=== PATIENT | male | born 1960 | race Caucasian/White ===

== ENCOUNTER 2020-09-22 09:23 | Outpatient (CLI) | payer BC, SELFPAY ==
--- NOTE | 2020-09-22 09:43 | EST_ITS ---
Patient Info Name: Wesley Pichardo Age: 59 years : 1960 Gender: Male Ht: 73 in Wt: 205 lbs BSA: 2.20 m2 Exam Date: 09/22/2020 10:24 AM Exam Location: [facility] Stress Patient Status: Outpatient Admit Date: 09/22/2020 Staff Ordering Physician: Ade Jj NP Attending Provider: Ade Jj NP Exercise Technologist: Mary Beth Neville RDCS Exercise Physician: Alexis Asencio DO Exam Type: CA stress test treadmill Study Info Indications I44.0 - Atrioventricular block, first degree A treadmill exercise stress test was performed. Summary 1. 1. Negative Bharat exercise stress test for ischemic ST changes by ECG criteria. 2. 2. Excellent functional capacity, achieving 12 METs of workload. 3. 3. Baseline hypertension with hypertensive response to exercise. 4. 4. Appropriate HR response to exercise. 5. 5. Appropriate HR recovery at 1 minute post exercise. 6. 6. No imaging with stress testing. 7. 7. Patient informed of the above results. Protocol: Bharat Stress ECG Details Stage: REST Duration (min): 7 min : 22 sec Speed (mph): 0.0 Grade (%): 0 HR (bpm): 47 SBP (mmHg): 147 DBP (mmHg): 82 METS: --- Stage: REST Duration (min): 10 min : 10 sec Speed (mph): 0.0 Grade (%): 0 HR (bpm): 55 SBP (mmHg): 147 DBP (mmHg): 82 METS: --- Stage: STAGE 1 Duration (min): 1 min : 0 sec Speed (mph): 1.7 Grade (%): 10 HR (bpm): 75 SBP (mmHg): 147 DBP (mmHg): 82 METS: --- Stage: STAGE 1 Duration (min): 2 min : 0 sec Speed (mph): 1.7 Grade (%): 10 HR (bpm): 71 SBP (mmHg): 147 DBP (mmHg): 82 METS: --- Stage: STAGE 1 Duration (min): 3 min : 0 sec Speed (mph): 1.7 Grade (%): 10 HR (bpm): 74 SBP (mmHg): 177 DBP (mmHg): 80 METS: --- Stage: STAGE 2 Duration (min): 1 min : 0 sec Speed (mph): 2.5 Grade (%): 12 HR (bpm): 78 SBP (mmHg): 177 DBP (mmHg): 80 METS: --- Stage: STAGE 2 Duration (min): 2 min : 0 sec Speed (mph): 2.5 Grade (%): 12 HR (bpm): 81 SBP (mmHg): 176 DBP (mmHg): 78 METS: --- Stage: STAGE 2 Duration (min): 3 min : 0 sec Speed (mph): 2.5 Grade (%): 12 HR (bpm): 81 SBP (mmHg): 176 DBP (mmHg): 78 METS: --- Stage: STAGE 3 Duration (min): 1 min : 0 sec Speed (mph): 3.4 Grade (%): 14 HR (bpm): 90 SBP (mmHg): 180 DBP (mmHg): 74 METS: --- Stage: STAGE 3 Duration (min): 2 min : 0 sec Speed (mph): 3.4 Grade (%): 14 HR (bpm): 94 SBP (mmHg): 180 DBP (mmHg): 74 METS: --- Stage: STAGE 3 Duration (min): 3 min : 0 sec Speed (mph): 3.4 Grade (%): 14 HR (bpm): 96 SBP (mmHg): 192 DBP (mmHg): 88 METS: --- Stage: STAGE 4 Duration (min): 1 min : 0 sec Speed (mph): 4.2 Grade (%): 16 HR (bpm): 115 SBP (mmHg): 192 DBP (mmHg): 88 METS: ---
== END 2020-09-22 09:24 | disposition home or self-care (01) ==
PROVIDERS: PCP Family Medicine; Visit Provider Nurse Practitioner
DX: I44.0 Atrioventricular block, first degree (principal)
CPT/HCPCS: 93017

== ENCOUNTER 2023-07-18 00:41 | Day surgery (SDC) | payer BC, SELFPAY ==
[2023-07-17 16:59] VITALS: BMI 27.1
[2023-07-18] VITALS (13 sets, daily range): BP systolic 100–129; BP diastolic 71–91; PULSE 58–90; RESP 12–16; TEMP 36.4; O2SAT 93–100
--- NOTE | 2023-07-18 07:00 | ECG_ITS ---
Measurements Intervals [place] Rate: 74 P: NM: 0 QRS: 24 QRSD: 90 T: 29 QT: 374 QTc: 417 Interpretive Statements ATRIAL FIBRILLATION ABNORMAL ECG NO PREVIOUS ECG AVAILABLE FOR COMPARISON Electronically Signed On 07-18-2023 8:14:12 POST TRONIC MACHINE OPERATOR by Alexis Asencio D.O.
[2023-07-18 08:21] LABS: Anion Gap 11 mmol/L (8-16); Blood Urea Nitrogen 8 mg/dL (9-20); Calcium 9.4 mg/dL (8.4-10.2); Carbon Dioxide 24 mmol/L (22-30); Chloride 100 mmol/L (98-107); Estimated CRCL calculation 123 ml/min; Estimated Glomerular Filt Rate > 60; Glucose 114 mg/dL (65-110); Magnesium 2.1 mg/dL (1.6-2.3); Sodium 135 mmol/L (137-145)
--- NOTE | 2023-07-18 08:30 | ECG_ITS ---
Measurements Intervals [place] Rate: 58 P: 21 [place]: 221 QRS: 4 QRSD: 97 T: 20 QT: 414 QTc: 408 Interpretive Statements SINUS BRADYCARDIA WITH FIRST DEGREE AV BLOCK BORDERLINE ECG COMPARED TO ECG 07/18/2023 07:44:31 SINUS BRADYCARDIA NOW PRESENT FIRST DEGREE AV BLOCK NOW PRESENT Electronically Signed On 07-19-2023 14:32:28 SORTER/ASSAY TECH by Alexis Asencio D.O.
--- NOTE | 2023-07-18 09:00 | PM.IMHP ---
H&P: HPI History of Present Illness Date/Time: 07/18/23 09:00 Chief Complaint: Atrial fibrillation Narrative: 62-year-old for AFib. Brought to hospital for ALLISON cardioversion Review of Systems Review of Systems: All systems reviewed & are unremarkable except as noted in HPI and below Constitutional: Constitutional: Denies body ache(s) Cardiovascular: Cardiovascular: Denies chest pain Respiratory: Respiratory: Denies hemoptysis [facility] Past Medical History Medical History Afib Essential (primary) hypertension Hyperlipidemia, unspecified Left rotator cuff tear (~12/2021) Male erectile dysfunction, unspecified Surgical History Surgical History H/O shoulder replacement Family History Family History Mother Family history of osteoporosis Family history of arthritis Family history of emphysema Other Acute myocardial infarction Social History Social History Social History: caffeine-coffee Smoking packs per day: 0.5 Smoking cigarettes per day: 10.0 Smoking status: Former smoker Tobacco type: cigarettes Alcohol intake: current Drinks per week: 14 Alcohol use details: occasionally Substance use: never Substance use type: does not use Last use: 2009 Do You Feel Safe in your Home?: Yes Lack of Transportation: No Lack of Food: Never True Current Housing: I Have Housing Concerned About Future Housing: Decline to Answer Difficulty Paying Gas/Electric Bills: Decline to Answer Difficulty Paying for Meds: Decline to Answer Currently Unemployed: Decline to Answer Education: Decline to Answer Difficulty w/ Childcare or Family Care: Decline to Answer Living arrangements: with family Occupation/Education: occupation Gender identity (if verbalized by the patient): Male Sexual Orientation (if Verbalized by the Patient): Straight or Heterosexual Spiritual care concerns: No Agree to blood products: Yes Meds Home Medications and Allergies Home Medications Medication Instructions Recorded Confirmed Type clobetasol 0.05 % topical spray 1 spray topical DAILY PRN Skin 08/26/20 07/17/23 History Irritation sildenafil 25 mg tablet 25 mg PO DAILY PRN Activity 12/22/20 07/17/23 History amlodipine 5 mg-benazepril 40 mg 1 cap PO DAILY #90 caps 11/29/22 07/18/23 Rx capsule apixaban 5 mg tablet (Eliquis) 5 mg PO BID 07/17/23 07/18/23 History metoprolol succinate 50 mg 50 mg PO DAILY #90 tabs 07/17/23 07/18/23 Rx tablet,extended release 24 hr multivit with minerals-iron 18 1 tablet PO DAILY 07/17/23 07/17/23 History mg-folic ac 400 mcg-vit K 25 mcg tablet (Adults Multivitamin) Allergies Allergy/AdvReac Type Severity Reaction Status Date / Time Penicillins Allergy Mild Hives Verified 07/18/23 07:51 Vital Signs Vital Signs - 24 hr 07/18/23 07:56 07/18/23 08:30 Temperature 36.4 C Pulse Rate 90 84 Respiratory Rate 16 16 Blood Pressure 129/89 114/80 Pulse Oximetry 93 100 Oxygen Delivery Room Air Nasal Cannula Oxygen Flow Rate 2 Exam Narrative: Alert oriented appears to be in no acute distress. Appears stated age Const: General: comfortable HENMT: Ears: TM's normal bilaterally Face/Nose/Sinus: Normal nares present Eyes: General: appearance normal, both eyes and all related structures Sclera: sclerae normal Neck: Neck: supple and no JVD Carotids: no bruits Chest: Other: No reproducible chest wall pain to palpation Resp: Effort & Inspection: normal respiratory effort Cardio: Rate: regular rate Rhythm: abnormal rhythm irregularly irregular Heart sounds: no murmurs GI: GI Palp: Yes Soft to palpation Skin: General skin exam: normal color Neuro: Speech: normal speech Sensory Exam: normal
--- NOTE | 2023-07-18 09:02 | WPDMODSED ---
Moderate Sedation Note-Pt Data Patient Data Diagnosis: Atrial fibrillation Present Complaint: Atrial fibrillation Procedure to be performed/Plan: 1. Multiplanar transesophageal echocardiogram color-flow Doppler Moderate sedation Electrical cardioversion Allergies Allergy/AdvReac Type Severity Reaction Status Date / Time Penicillins Allergy Mild Hives Verified 07/18/23 07:51 Home Medications Medication Instructions Recorded Confirmed Type clobetasol 0.05 % topical spray 1 spray topical DAILY PRN Skin 08/26/20 07/17/23 History Irritation sildenafil 25 mg tablet 25 mg PO DAILY PRN Activity 12/22/20 07/17/23 History amlodipine 5 mg-benazepril 40 mg 1 cap PO DAILY #90 caps 11/29/22 07/18/23 Rx capsule apixaban 5 mg tablet (Eliquis) 5 mg PO BID 07/17/23 07/18/23 History metoprolol succinate 50 mg 50 mg PO DAILY #90 tabs 07/17/23 07/18/23 Rx tablet,extended release 24 hr multivit with minerals-iron 18 1 tablet PO DAILY 07/17/23 07/17/23 History mg-folic ac 400 mcg-vit K 25 mcg tablet (Adults Multivitamin) Current Medications: Active Medications Sodium Chloride (Normal Saline Iv) 1,000 mls @ 30 mls/hr IV CONT .Q24H SADA Sedation/Anesthesia: No previous sedation/anesthesia problems (including family history). [facility] Past Medical History Medical History Afib Essential (primary) hypertension Hyperlipidemia, unspecified Left rotator cuff tear (~12/2021) Male erectile dysfunction, unspecified Surgical History Surgical History H/O shoulder replacement Family History Family History Mother Family history of osteoporosis Family history of arthritis Family history of emphysema Other Acute myocardial infarction Social History Social History Social History: caffeine-coffee Smoking packs per day: 0.5 Smoking cigarettes per day: 10.0 Smoking status: Former smoker Tobacco type: cigarettes Alcohol intake: current Drinks per week: 14 Alcohol use details: occasionally Substance use: never Substance use type: does not use Last use: 2009 Do You Feel Safe in your Home?: Yes Lack of Transportation: No Lack of Food: Never True Current Housing: I Have Housing Concerned About Future Housing: Decline to Answer Difficulty Paying Gas/Electric Bills: Decline to Answer Difficulty Paying for Meds: Decline to Answer Currently Unemployed: Decline to Answer Education: Decline to Answer Difficulty w/ Childcare or Family Care: Decline to Answer Living arrangements: with family Occupation/Education: occupation Gender identity (if verbalized by the patient): Male Sexual Orientation (if Verbalized by the Patient): Straight or Heterosexual Spiritual care concerns: No Agree to blood products: Yes Mod Sed Physical Exam Physical Exam Pre Procedural Exam: Normal: Appearance, Eyes, Ears, Nose, Neck, Throat, Airway, Lungs, Heart Size, Heart Rate, Neuro Exam, Extremities and Skin and Variation: Heart Rhythm (Irregular irregular) Hours since solid foods: 12 Hours since liquid intake: 12 Mallampati Classification: class II Internal Medicine - PN: Obj Da Vital Signs Vital Signs: Vital Signs - 24 hr 07/18/23 07:56 07/18/23 08:30 Temperature 36.4 C Pulse Rate 90 84 Respiratory Rate 16 16 Blood Pressure 129/89 114/80 Pulse Oximetry 93 100 Oxygen Delivery Room Air Nasal Cannula Oxygen Flow Rate 2 Meds/Results Medications: Active Medications Generic Name Dose Route Start Last Admin Trade Name Freq PRN Reason Stop Dose Admin Sodium Chloride 1,000 mls @ 30 mls/hr 07/18/23 07:00 Normal Saline Iv IV CONT .Q24H SADA Labs 07/18/23 08:03 Labs: Laboratory Results - last 24 hr 07/18/23 08:03
--- NOTE | 2023-07-18 09:26 | P.PCNTEECA_ITS ---
ALLISON with Cardioversion Date of procedure: 07/18/23 Procedure Type: 1. Multiplanar transesophageal echocardiography was with color flow and pulse wave Doppler 2. Moderate sedation 3. Agitated saline study 4. Electrical cardioversion Diagnosis: Atrial fibrillation Indications: Atrial fibrillation Description of Procedure: After discussing the risks, benefits and alternatives to the procedure patient agreeable via verbal and written informed consent. Risks discussed included esophageal rupture perforation, , adverse reaction to anesthesia, skin irritation or burn, sore throat, shocking into more problematic heart rhythm, bleeding, pain, infection. After time-out was taken after establishing continuous telemetry monitoring, pulse oxygenation and serial blood pressure assessments the procedure was started. Procedure start time 9:06 a.m. Procedure stop time 9:17 a.m. Complications: None Blood loss: None Medications used a total 4 mg Versed and 75 mcg of fentanyl given in divided dosages for moderate sedation. Hurricaine spray to the hypopharynx x2 as well as viscous lidocaine 8 cc total for topical anesthetic. Medications were administered and patient was monitored by Mary Beth Harris RN Sedation: As above Findings: ALLISON: Normal left ventricular size and function with ejection fraction of 70%. Normal right ventricular size and function. Normal right atrial size. Mild to moderate left atrial enlargement. Mdro-jd-ulcwefzd mitral regurgitation. Possible mild torn minor cord versus redundant chordal apparatus. Normal tricuspid valve with mild tricuspid regurgitation. Normal pulmonic valve without significant pulmonic insufficiency. Trileaflet aortic valve without significant aortic insufficiency. Aortic root normal in size with minimal plaquing seen in the descending aorta and aortic arch. No pericardial effusion. Left atrial appendage is without mass or thrombus. Velocities of 50 centimeters/second. Atrial septum is intact without color flow evidence or agitated saline evidence of shunting. Cardioversion: Atrial fibrillation was confirmed and using 200 joules of synchronized biphasic energy sinus rhythm was restored. Conclusion: 1. Normal left ventricular size and function with ejection fraction 70% 2. Hxev-ot-kyfoieju left atrial enlargement 3. Hlxe-fc-ckgxview mitral regurgitation 4. . Mild tricuspid regurgitation 5. Intact atrial septum with negative agitated saline study 6. No left atrial appendage thrombus 7. Successful nondenominational of sinus rhythm using 200 joules of synchronized biphasic energy 8. Moderate sedation
== END 2023-07-18 11:20 | disposition home or self-care (01) ==
PROVIDERS: PCP Family Medicine; Visit Provider Internal Medicine Cardiovascular Disease
PROC: 5A2204Z Restoration of Cardiac Rhythm, Single (ICD-10-PCS; principal; 2023-07-18 08:30)
PROC: (CPT 93312; 2023-07-18 08:30)
DX: I48.91 Unspecified atrial fibrillation (principal); I08.1 Rheumatic disorders of both mitral and tricuspid valves; I10 Essential (primary) hypertension; E78.5 Hyperlipidemia, unspecified; N52.9 Male erectile dysfunction, unspecified; Z79.01 Long term (current) use of anticoagulants; Z98.890 Other specified postprocedural states; Z87.891 Personal history of nicotine dependence; Z86.79 Personal history of other diseases of the circulatory system; Z82.49 Family history of ischemic heart disease and other diseases of the circulatory system
CPT/HCPCS: 36415; 80048; 83735; 92960; 93312; 93320; 93325; C8925; J2250; J3010; J7030

== ENCOUNTER 2024-03-25 00:12 | Day surgery (SDC) | payer BC, SELFPAY ==
[2024-03-24 17:02] VITALS: BMI 26.6
--- NOTE | 2024-03-25 07:00 | ECG_ITS ---
Test Date: 2024-03-25 08:51:55 Measurements Intervals [place] Rate: 60 P: 22 [place]: 222 QRS: 6 QRSD: 82 T: 23 QT: 409 QTc: 409 Interpretive Statements SINUS RHYTHM WITH FIRST DEGREE AV BLOCK EARLY PRECORDIAL R/S TRANSITION BASELINE WANDER- I, III BORDERLINE ECG Compared to ECG 03/25/2024 07:29:40 Atrial fibrillation no longer present Electronically Signed On 03-25-2024 09:09:22 SMALL STOCK FACER by Alexis Asencio D.O.
[2024-03-25 07:33] VITALS: BP 132/97; PULSE 67; RESP 17; TEMP 36.6; O2SAT 96
[2024-03-25 07:46] LABS: Basophils Percent Auto 0.9 % (0.2-1.2); Eosinophils Absolute Auto 0.2 K/mm3 (0-0.3); Eosinophils Percent Auto 3.7 % (0-4.4); Hematocrit 45.7 % (42.0-52.0); Hemoglobin 16.4 g/dL (14.0-18.0); Immature Granulocyte Absolute 0.02 K/mm3 (0.00-0.031); Immature Granulocyte Percent A 0.4 % (0-0.5); Lymphocytes Absolute Auto 1.25 K/mm3 (0.9-3.2); Lymphocytes Percent Auto 27.3 % (18.3-44.2); Mean Corpuscular HGB Conc 35.9 g/dl (32-36); Mean Corpuscular Hemoglobin 34.6 pg (26-34); Mean Corpuscular Volume 96.4 fl (80-100); Mean Platelet Volume 8.8 fl (7.4-10.4); Monocytes Absolute Auto 0.7 K/mm3 (0.1-0.6); Monocytes Percent Auto 14.6 % (2.6-8.5); Neutrophils Absolute Auto 2.4 K/mm3 (1.3-6.7); Neutrophils Percent Auto 53.1 % (45.5-73.1); Platelet Count Result 231 k/mm3 (150-375); Red Blood Count 4.74 M/mm3 (4.6-6.20); Red Cell Distribution Width 11.4 % (11.5-14.5); White Blood Count 4.6 K/mm3 (4.5-10.0)
[2024-03-25 07:59] LABS: Anion Gap 11 mmol/L (4-12); Blood Urea Nitrogen 11 mg/dL (9-20); Calcium 9.4 mg/dL (8.4-10.2); Carbon Dioxide 24 mmol/L (22-30); Chloride 99 mmol/L (98-107); Estimated CRCL calculation 147 ml/min; Estimated Glomerular Filt Rate > 60; Glucose 110 mg/dL (65-110); Potassium 4.1 mmol/L (3.4-5.0); Sodium 134 mmol/L (137-145)
--- NOTE | 2024-03-25 08:38 | P.HP_ITS ---
H&P: HPI History of Present Illness Date/Time: 03/25/24 08:38 Chief Complaint: Atrial fibrillation Narrative: 63-year-old with atrial fibrillation. Here for cardioversion Review of Systems Review of Systems: All systems reviewed & are unremarkable except as noted in HPI and below Constitutional: Constitutional: Denies body ache(s) Cardiovascular: Cardiovascular: Denies chest pain Respiratory: Respiratory: Denies hemoptysis PMFSH Past Medical History Medical History Afib Broken clavicle 04/2023 Episode of gagging Essential (primary) hypertension Hyperlipidemia, unspecified Left rotator cuff tear (~12/2021) Male erectile dysfunction, unspecified Rib fracture 04/2023 Surgical History Surgical History H/O shoulder replacement Family History Family History Mother Family history of osteoporosis Family history of arthritis Family history of emphysema Other Acute myocardial infarction Social History Social History Social History: caffeine-coffee Smoking packs per day: 0 Smoking cigarettes per day: 0.0 Years smoked: 0 Smoking pack-years: 0.00 Smoking status: Never smoker Tobacco type: cigarettes Second hand tobacco smoke exposure: No Alcohol intake: current Drinks per week: 10 Alcohol use details: 1-2 drinks a day. wine Substance use: never Substance use type: does not use Last use: 2009 Do You Feel Safe in your Home?: Yes Lack of Transportation: No Lack of Food: Never True Current Housing: I Have Housing Concerned About Future Housing: Decline to Answer Difficulty Paying Gas/Electric Bills: Decline to Answer Difficulty Paying for Meds: Decline to Answer Currently Unemployed: Decline to Answer Education: Decline to Answer Difficulty w/ Childcare or Family Care: Decline to Answer Living arrangements: with family Occupation/Education: occupation Gender identity (if verbalized by the patient): Male Sexual Orientation (if Verbalized by the Patient): Straight or Heterosexual Spiritual care concerns: No Agree to blood products: Yes Meds Home Medications and Allergies Home Medications Medication Instructions Recorded Confirmed Type clobetasol 0.05 % topical spray 1 spray topical DAILY PRN Skin 08/26/20 03/24/24 History Irritation sildenafil 25 mg tablet 25 mg PO DAILY PRN Sexual Activity 12/22/20 03/24/24 History amlodipine 5 mg-benazepril 40 mg 1 cap PO DAILY #90 caps 10/08/23 03/24/24 Rx capsule apixaban 5 mg tablet (Eliquis) 5 mg PO BID 03/24/24 03/24/24 History collagen (bovine) 1 dose pk PO DAILY 03/24/24 03/24/24 History metoprolol succinate 50 mg 75 mg PO DAILY 03/24/24 03/24/24 History tablet,extended release 24 hr metronidazole 0.75 % topical cream 1 applic topical DAILY PRN Skin 03/24/24 03/24/24 History Irritation Allergies Allergy/AdvReac Type Severity Reaction Status Date / Time Penicillins Allergy Mild Hives Verified 03/25/24 07:30 Vital Signs Vital Signs - 24 hr 03/25/24 07:33 Temperature 36.6 C Pulse Rate 67 Respiratory Rate 17 Blood Pressure 132/97 H Pulse Oximetry 96 Oxygen Delivery Room Air Exam Const: General: comfortable HENMT: Face/Nose/Sinus: Normal nares present Eyes: Sclera: sclerae normal Neck: Neck: supple Resp: Auscultation: clear to auscultation bilaterally Cardio: Rhythm: abnormal rhythm irregularly irregular GI: Auscultation: normal bowel sounds Skin: General skin exam: normal color Extrem: General: normal to inspection H&P: Results Labs Labs: Short CBC 03/25/24 Range/Units 07:37 WBC 4.6 (4.5-10.0) K/mm3 Hgb 16.4 (14.0-18.0) g/dL Hct 45.7 (42.0-52.0) % Plt Count 231 (150-375) k/mm3 [facility] 03/25/24 07:37 Sodium 134 L Potassium 4.1 Chloride 99 Carbon Dioxide 24 BUN 11 Creatinine 0.50 L Glucose 110 Calcium 9.4 Assessment and Plan Assessment and plan (1) Afib: Code(s): I48.91 - Unspecified atrial fibrillation Status: Acute Assessment and Plan: On anticoagulation. Plan for elective cardioversion. He himself does not think that he is missed any doses Eliquis. States that if he did, it was only 1 dose and it was 3 weeks ago. Plan for outpatient cardioversion (2) Essential (primary) hypertension: Code(s): I10 - Essential (primary) hypertension Status: Chronic Assessment and Plan: Continue meds (3) Hyperlipidemia, unspecified: Qualifiers: Hyperlipidemia type: unspecified Qualified Code(s): E78.5 - Hyperlipidemia, unspecified Code(s): E78.5 - Hyperlipidemia, unspecified Status: Chronic
[2024-03-25 08:40] VITALS: BP 123/87; PULSE 66; RESP 19; O2SAT 98
--- NOTE | 2024-03-25 08:42 | P.SEDATION_ITS ---
Moderate Sedation Note-Pt Data Patient Data Diagnosis: Atrial fibrillation Present Complaint: Atrial fibrillation Procedure to be performed/Plan: Moderate sedation Elective electrical cardioversion Allergies Allergy/AdvReac Type Severity Reaction Status Date / Time Penicillins Allergy Mild Hives Verified 03/25/24 07:30 Home Medications Medication Instructions Recorded Confirmed Type clobetasol 0.05 % topical spray 1 spray topical DAILY PRN Skin 08/26/20 03/24/24 History Irritation sildenafil 25 mg tablet 25 mg PO DAILY PRN Sexual Activity 12/22/20 03/24/24 History amlodipine 5 mg-benazepril 40 mg 1 cap PO DAILY #90 caps 10/08/23 03/24/24 Rx capsule apixaban 5 mg tablet (Eliquis) 5 mg PO BID 03/24/24 03/24/24 History collagen (bovine) 1 dose pk PO DAILY 03/24/24 03/24/24 History metoprolol succinate 50 mg 75 mg PO DAILY 03/24/24 03/24/24 History tablet,extended release 24 hr metronidazole 0.75 % topical cream 1 applic topical DAILY PRN Skin 03/24/24 03/24/24 History Irritation Current Medications: Active Medications Sodium Chloride (Normal Saline Iv) 1,000 mls @ 30 mls/hr IV CONT .Q24H SADA Sedation/Anesthesia: No previous sedation/anesthesia problems (including family history). [facility] Past Medical History Medical History Afib Broken clavicle 04/2023 Episode of gagging Essential (primary) hypertension Hyperlipidemia, unspecified Left rotator cuff tear (~12/2021) Male erectile dysfunction, unspecified Rib fracture 04/2023 Surgical History Surgical History H/O shoulder replacement Family History Family History Mother Family history of osteoporosis Family history of arthritis Family history of emphysema Other Acute myocardial infarction Social History Social History Social History: caffeine-coffee Smoking packs per day: 0 Smoking cigarettes per day: 0.0 Years smoked: 0 Smoking pack-years: 0.00 Smoking status: Never smoker Tobacco type: cigarettes Second hand tobacco smoke exposure: No Alcohol intake: current Drinks per week: 10 Alcohol use details: 1-2 drinks a day. wine Substance use: never Substance use type: does not use Last use: 2009 Do You Feel Safe in your Home?: Yes Lack of Transportation: No Lack of Food: Never True Current Housing: I Have Housing Concerned About Future Housing: Decline to Answer Difficulty Paying Gas/Electric Bills: Decline to Answer Difficulty Paying for Meds: Decline to Answer Currently Unemployed: Decline to Answer Education: Decline to Answer Difficulty w/ Childcare or Family Care: Decline to Answer Living arrangements: with family Occupation/Education: occupation Gender identity (if verbalized by the patient): Male Sexual Orientation (if Verbalized by the Patient): Straight or Heterosexual Spiritual care concerns: No Agree to blood products: Yes Mod Sed Physical Exam Physical Exam Pre Procedural Exam: Normal: Appearance, Eyes, Ears, Nose, Neck, Throat, Airway, Lungs, Heart Size, Heart Rate, Neuro Exam, Abdomen, Extremities and Skin and Variation: Heart Rhythm (Irregular irregular) Hours since solid foods: 12 Hours since liquid intake: 12 Mallampati Classification: class II Internal Medicine - PN: Obj Da Vital Signs Vital Signs: Vital Signs - 24 hr 03/25/24 07:33 Temperature 36.6 C Pulse Rate 67 Respiratory Rate 17 Blood Pressure 132/97 H Pulse Oximetry 96 Oxygen Delivery Room Air Meds/Results Medications: Active Medications Generic Name Dose Route Start Last Admin Trade Name Freq PRN Reason Stop Dose Admin Sodium Chloride 1,000 mls @ 30 mls/hr 03/25/24 07:00 Normal Saline Iv IV CONT .Q24H SADA Labs 03/25/24 07:37 03/25/24 07:37 Labs: Laboratory Results - last 24 hr 03/25/24 07:37 WBC 4.6 RBC 4.74 Hgb 16.4 Hct 45.7 MCV 96.4 MCH 34.6 H MCHC 35.9 RDW 11.4 L Plt Count 231 MPV 8.8 Immature Gran % (Auto) 0.4 Neut % (Auto) 53.1 Lymph % (Auto) 27.3 [place] % (Auto) 14.6 H Eos % (Auto) 3.7 Baso % (Auto) 0.9 Lymph # (Auto) 1.25 [place] # (Auto) 0.7 H Eos # (Auto) 0.2 Baso # (Auto) 0.0 Abs Immat Gran (auto) 0.02 Absolute Neuts (auto) 2.4 Absolute Nucleated RBC 0.000 Nucleated RBC % 0.0 Sodium 134 L Potassium 4.1 Chloride 99 Carbon Dioxide 24 Anion Gap 11 BUN 11 Creatinine 0.50 L Estim Creat Clear Calc 147 Estimated GFR > 60 Glucose 110 Calcium 9.4 Magnesium 2.0 ASA Classification/Sedation ASA Classification/Sedation ASA Class: II Emergent: No Risks: Risks, benefits and alternatives explained and patient/family accepted plan for sedation. Patient re-evaluated immediately prior to sedation.
[2024-03-25 08:45] VITALS: BP 131/87; PULSE 64; RESP 19; O2SAT 96
--- NOTE | 2024-03-25 08:45 | ECG_ITS ---
Test Date: 2024-03-25 07:29:40 Measurements Intervals [place] Rate: 67 P: 0 [place]: 0 QRS: 8 QRSD: 90 T: 22 QT: 374 QTc: 395 Interpretive Statements ATRIAL FIBRILLATION BASELINE ARTIFACT- I, II, AVR, AVL, AVF ABNORMAL ECG No previous ECG available for comparison Electronically Signed On 03-25-2024 08:05:37 PHOTOGRAPHER'S ASSISTANT by Alexis Asencio D.O.
--- NOTE | 2024-03-25 08:54 | P.PCNCVR_ITS ---
Cardioversion Cardioversion Date of procedure: 03/25/24 Procedure: Electrocardioversion Moderate sedation Pre-op diagnosis: Atrial fibrillation Post-op diagnosis: Same Indications: Atrial fibrillation Description of procedure: After discussing risks, benefits alternatives of procedure patient agreeable via verbal and written informed consent. Risks discussed include skin irritation or burn, shocking into more problematic heart rhythm, , stroke, adverse reaction anesthesia. After establishing continuous telemetry monitoring, pulse oxygenation and serial blood pressure assessments, time-out was taken procedure was started. Procedure start time: 8:46 a.m. Procedure stop time 8:49 a.m. Complications: None Blood loss: None Sedation: A total of 3 mg of Versed and 50 mcg of fentanyl given in divided dosages Medications were administered and patient was monitored by Theresa Elizondo RN Findings: Atrial fibrillation was confirmed and 150 joules of biphasic synchronized energy was utilized to restore sinus rhythm Conclusion: 1. Successful nondenominational of sinus rhythm from atrial fibrillation 150 joules of synchronized biphasic energy 2. Moderate sedation Patient will be discharged on same meds except for reduced dose of metoprolol succinate 50 mg daily. Continue Eliquis 5 mg p.o. b.i.d. indefinitely EKG in 1 week and follow up with me thereafter
== END 2024-03-25 10:00 | disposition home or self-care (01) ==
PROVIDERS: PCP Family Medicine; Visit Provider Internal Medicine Cardiovascular Disease
PROC: 5A2204Z Restoration of Cardiac Rhythm, Single (ICD-10-PCS; principal; 2024-03-25 08:30)
DX: I48.91 Unspecified atrial fibrillation (principal); I10 Essential (primary) hypertension; E78.5 Hyperlipidemia, unspecified; Z79.01 Long term (current) use of anticoagulants
CPT/HCPCS: 36415; 80048; 83735; 85025; 92960; J2250; J3010; J7040

== ENCOUNTER 2024-09-08 15:00 | Outpatient (CLI) | payer OTHER, SELFPAY ==
--- OUTSIDE RECORDS SUMMARY | 2024-09-08 09:13 | XMS_ITS | Clinical Summary ---
Author Organization [facility] Address [address] [place] [address] Care Team Providers Care Precision Crop Manager Name Role Phone Mansoor Wright MD Primary Care Provider Joshua Miranda MD Unavailable Allergies Active Allergy Reactions Criticality Noted Date Comments Penicillins Rash Medium 02/15/2010 Medications amLODIPine-benaz epriL (LOTREL) 5-40 mg per capsuleIndicatio ns:hypertension Take 1 capsule by mouth every morning 07/14/19 22 Active clobetasoL 0.05 % external sprayIndications :Plaque Psoriasis Apply 1 spray topically as needed Active metroNIDAZOLE (METROCREAM) 0.75 % creamIndications :Acne Rosacea Apply 1 application topically every morning Active ascorbic acid (VITAMIN C) 500 mg tablet,chewableI ndications:healt h Take 1 tablet/chew tab (500 mg total) by mouth every morning Active collagen, hydrolysate, bovine, (collagen, hydr, bovine,, bulk,) 100 % powderIndication s:health 1 Scoop every morning Active sildenafiL (VIAGRA) 25 mg tablet Take 20 mg by mouth daily as needed for erectile dysfunction Active dronedarone (MULTAQ) 400 mg tabletIndication s:Persistent atrial fibrillation (HCC) Take 1 tablet (400 mg total) by mouth 2 (two) times a day 180 tablet 3 08/15/19 25 Active metoprolol XL (TOPROL-XL) 25 mg extended release tabletIndication s:Persistent atrial fibrillation (HCC) Take 1 tablet (25 mg total) by mouth daily 90 tablet 3 08/15/19 25 026 Active apixaban (ELIQUIS) 5 mg tabletIndication s:Persistent atrial fibrillation (HCC) Take 1 tablet (5 mg total) by mouth 2 (two) times a day 180 tablet 3 08/15/19 25 Active metoprolol XL (TOPROL-XL) 50 mg extended release tabletIndication s:hypertension Take 1 tablet (50 mg total) by mouth every morning 07/07/19 25 025 Discontin ued(Other ) aspirin (Enteric Coated Aspirin) 81 mg enteric coated tabletIndication s:PAF (paroxysmal atrial fibrillation) (HCC) Take 1 tablet (81 mg total) by mouth daily 07/07/19 25 025 Discontin ued(Alter virgilio therapy) apixaban (ELIQUIS) 5 mg tablet Take 1 tablet (5 mg total) by mouth 2 (two) times a day 025 Discontin ued(Reord er) Active Problems Problem Noted Date Diagnosed Date Coronary artery calcification 02/18/2024 Mixed hyperlipidemia 06/13/2023 Chronic anticoagulation 06/13/2023 Blunt trauma to chest, initial encounter 023 PAF (paroxysmal atrial fibrillation) 04/27/2023 Fracture of multiple ribs of left side 3 Overview (04/27/2023): 7th & 8th ribs Fracture of left clavicle 04/27/2023 Hyponatremia 04/27/2023 Hypertension 04/27/2023 Complete rotator cuff tear 12/15/2021 Rotator cuff tear arthropathy of left shoulder 0 11/07/2021 Overview (11/07/2021): Added automatically from request for surgery [id number] Knee pain 08/05/2017 Arthralgia of shoulder 02/15/2010 Encounters Date Type Department Care Team Description 09/01/2024 Telephone [facility] Cardiology [address] [place] [address] Derik Wise MD 08/21/2024 Telephone [facility] Cardiology [address] [place] [address] Derik Wise MD 08/14/2024 8:30 AM CDT Office Visit [facility] Medical [facility] Cardiology [address] [place] [address] Valeria Campos NP Persistent atrial fibrillation (HCC) (Primary Dx); History of cardioversion; Primary hypertension; Coronary artery calcification 08/14/2024 Telephone [facility] Cardiology [address] [place] [address] Valeria Campos NP 08/10/2024 Telephone [facility] Cardiology [address] [place] [phone] Derik Wise MD Atrial Fibrillation 07/07/2024 8:00 AM BRAIDER TENDER Office Visit [facility] Cardiology [address] [place] [phone] Valeria Campos NP PAF (paroxysmal atrial fibrillation) (HCC) (Primary Dx); History of cardioversion; Encounter for anticoagulation discussion and counseling; Primary hypertension; Coronary artery calcification from Last 3 Months Surgical History Surgery Date Site/Laterality Comments SHOULDER SURGERY 05/13/2009 - 05/12/[address] Cardona KNEE SURGERY 05/13/2004 - 05/12/2005 Medical History Medical History Date Comments Hypertension New onset atrial fibrillation (HCC) 04/27/2023 Family History Medical History Relation Name Comments Gout Father Family history of gout - (Added by TW Conv) Arthritis Mother Family history of arthritis - (Added by TW Conv) Scoliosis Mother Family history of scoliosis - (Added by TW Conv) Seizures Son Family history of seizures - (Added by TW Conv) Anesthesia problems Neg Hx Relation Name Status Comments Father Mother Son Social History Tobacco Use Types Packs/Day Years Used Date Smoking Tobacco: Never Smokeless Tobacco: Never Tobacco Cessation:Counseling Given: Not Answered [facility] Utilities Answer Date Recorded In the past 12 months has e electric, gas, oil, or water company threatened to shut off services in your home? No 04/29/2023 Social Connection and Isolat ion Panel [NHANES] Answer Date Recorded In a typical week, how many times do you talk on the phone with family, friends, or neighbors? More than three times a week 04/29/2023 How often do you get togethe r with friends or relatives? More than three times a week 04/29/2023 How often do you attend chur ch or baptism services? More than 4 times per year 04/29/2023 Do you belong to any clubs o r organizations such as uatsdin groups, unions, fraternal or athletic groups, or school groups? Yes 04/29/2023 How often do you attend meet ings of the clubs or organizations you belong to? More than 4 times per year 04/29/2023 Are you , , di vorced, , never , or living with a partner? 04/29/2023 AUDIT-C Answer Date Recorded Q1: How often do you have a drink containing alcohol? 4 or more times a week 12/15/2021 Q2: How many drinks containi ng alcohol do you have on a typical day when you are drinking? 1 or 2 Q3: How often do you have si x or more drinks on one occasion? Never 12/15/2021 Overall Financial Resource Strain (CARDIA) Answe r Date Recorded How hard is it for you to pa y for the very basics like food, housing, medical care, and heating? Not hard at all 04/29/2023 Hunger Vital Sign Answer Date Recorded Within the past 12 months, y ou worried that your food would run out before you got the money to buy more. Never true 04/29/20 23 Within the past 12 months, t he food you bought just didn't last and you didn't have money to get more. Never true 04/29/2023 PRAPARE - Transportation Answer Date Re corded In the past 12 months, has l ack of transportation kept you from medical appointments or from getting medications? No 04/12 In the past 12 months, has l ack of transportation kept you from meetings, work, or from getting things needed for daily living? No 04/29/2023 Housing Stability Vital Sign Answer Esvin e Recorded In the last 12 months, was t here a time when you were not able to pay the mortgage or rent on time? No 04/29/2023 In the last 12 months, how many places have you lived? 1 04/29/2023 In the last 12 months, was t here a time when you did not have a steady place to sleep or slept in a jail (including now)? No 04/29/2023 Personal Safety Answer Date Recorded Have you ever been in or are you currently in a harmful physical or emotional relationship or is someone making you feel afraid or unsafe? Denies 04/27/2023 Sex and Gender Information Value Date Recorded Sex Assigned at Not on file Legal Sex Male 2:42 AM BRAIDER TENDER Gender Identity Not on file Sexual Orientation Not on file Obstetrics History Last Filed Vital Signs Vital Sign Reading Time Taken Comments Blood Pressure 114/70 08/14/2024 8:27 AM CDT Pulse 55 08/14/2024 8:27 AM CDT Temperature 36.5 C (97.7 F) 04/29/2023 11:58 AM BRAIDER TENDER Respiratory Rate 16 02/18/2024 2:46 PM CDT Oxygen Saturation 95% 08/14/2024 8:27 AM CDT Inhaled Oxygen Concentration - - Weight 98.4 kg (217 lb) 08/14/2024 8:27 AM CDT Height 188 cm (6' 2 ) 08/14/2024 8:27 AM CDT Body Mass Index 27.86 08/14/2024 8:27 AM CDT Plan of Treatment Health Maintenance Due Date Last Done Comments Colon Cancer Screening-Colonoscopy 1960 Depression Screening 1960 Hepatitis C Screening 1960 Prostate Cancer Screening-PSA 1960 Hepatitis B Screening 1978 Regular Well Visit/Exam 18-64 1978 Zoster Vaccine (1 of 2) 2010 Covid-19 Vaccine (3 - 2023-2 5 season) 2024 07/01/2020, 06/03/2020 Influenza Vaccine (Season Ended) 2025 DTaP/Tdap/Td Vaccine (2 - Td or Tdap) 06/22/2031 06/22/2021 Pneumococcal vaccine <65 Aged Out No longer eligible based on patient's age to complete this topic Medical Devices Implanted Type Area Program Review Director Device Identifier Shelf Expiration Date Model / Serial / Lot Boedo 29mm Full Wedge Augment Shoulder 15d Baseplate Glenoid [id number] - [id number] - [id number] Implanted:Qty: 1 on 12/15/2021 by Roge Lassiter MD at [facility] Left: Shoulder [employer] 07/27/2026 [id number] / [id number] / [employer] Tornier Aequalis Perform Od42 Mm Reverse Shoulder Standard Sphere Glenoid [id number] - [id number] - [id number] Implanted:Qty: 1 on 12/15/2021 by Roge Lassiter MD at [facility] Left: Shoulder [employer] 10/12/2026 [id number] / [id number] / [employer] Aequalis Perform Reversed 6.5mm 35mm Central Glenoid Screw [id number] - [id number] Implanted:Qty: 1 on 12/15/2021 by Roge Lassiter MD at [facility] Left: Shoulder [employer] [id number] / / [employer] Aequalis Perform Reversed Od5 Mm L46 Mm Peripheral Glenoid Screw Baseplate Nonsterile [id number] - [id number] Implanted:Qty: 1 on 12/15/2021 by Roge Lassiter MD at [facility] Left: Shoulder [employer] [id number] / / [employer] Aequalis Perform Reversed 5mm 30mm Peripheral Glenoid Screw [id number] - [id number] Implanted:Qty: 1 on 12/15/2021 by Roge Lassiter MD at [facility] Left: Shoulder [employer] [id number] / / [employer] Aequalis Perform Reversed 5mm 42mm Peripheral Glenoid Screw [id number] - [id number] Implanted:Qty: 1 on 12/15/2021 by Roge Lassiter MD at [facility] Left: Shoulder [employer] [id number] / / [employer] Insert Perform 10 Deg [id number] - [id number] - [id number] Implanted:Qty: 1 on 12/15/2021 by Roge Lassiter MD at [facility] Left: Shoulder [employer] [id number] 01/04/2025 [id number] / [id number] / [employer] Stem Perform Sz 3 Plus Humeral Long Dwx3pl - [id number] - [id number] Implanted:Qty: 1 on 12/15/2021 by Roge Lassiter MD at [facility] Left: Shoulder [employer] 08/31/2026 [id number] / [id number] / Procedures Procedure Name Priority Date/Time Associated Diagnosis Comments ECG 12-LEAD Routine 08/14/2024 Persistent atrial fibrillation (HCC) from Last 3 Months Results * ECG 12 lead (08/14/2024) 08/14/2024 us Valeria Campos NP ECG ORDERABLES Edited Re sult - Final from Last 3 Months Insurance [facility] [employer] [facility] CHOICE [facility] HMO/PPO Address: [address] [address] [place] [address] Advance Directives For more information, please contact: [phone] Documents on File Type Date Recorded Patient C Architect Expl anation ADVANCE DIRECTIVE 12/15/2021 9:08 PM POA ADVANCE DIRECTIVE 12/15/2021 10:31 AM Power of Animal Science Professor-Medical * Full Code (Latest Code Status on File) Date Activated Date Inactivated Comments 04/27/2023 12:43 PM 04/29/2023 7:41 PM * Full Code Date Activated Date Inactivated Comments 12/15/2021 6:24 PM 12/16/2021 1:27 PM Care Teams Precision Crop Manager Relationship Specialty Start Date End Date Mansoor Wright MD PCP - General Family Practice 09/22/21 Joshua Miranda MD [address] [place] [address] Consulting Physician Cardiology 04/29/23
--- OUTSIDE RECORDS SUMMARY | 2024-09-08 09:13 | XMS_ITS | Clinical Summary ---
Author Organization [facility] Address [address] [place] [address] Care Team Providers Care All Terrain Vehicle Racer Name Role Phone Unavailable Primary Care Provider Unavailabl e Immunizations Immunization Administration Dates Next Due MODERNA COVID-19 (12+) MRNA, LNP-S, PF, 100 MCG/ 0.5 ML DOSE 07/01/2020,06/03/2020 Social History Tobacco Use Types Packs/Day Years Used Date Smoking Tobacco: Never Assessed Sex and Gender Information Value Date Recorded Sex Assigned at Not on file Legal Sex Male 2:10 PM TUBE WINDER Gender Identity Not on file Sexual Orientation Not on file Plan of Treatment Health Maintenance Due Date Last Done Comments Colorectal Cancer Screening Colonoscopy (10 Years) 1960 Annual Physical 01/01/1964 Hepatitis C 1978 DTaP, Tdap and Td Vaccines ( 1 - Tdap) 01/01/1980 Pneumococcal Vaccine: 50+ Years (1 of 1 - PCV) 2010 Zoster Vaccines (1 of 2) 2010 COVID-19 Vaccine (3 - 2023-2 5 season) 2024 07/01/2020, 06/03/2020 RSV Immunization or 60+ Years (1 - 1-dose 75+ series) 01/01/2036 Meningococcal B Vaccine Aged Out No l onger eligible based on patient's age to complete this topic Meningococcal Vaccine Aged Out No ian jagdish eligible based on patient's age to complete this topic RSV Immunizations Under 20 Months Aged Out No longer eligible b ased on patient's age to complete this topic
--- OUTSIDE RECORDS SUMMARY | 2024-09-08 09:13 | XMS_ITS | Clinical Summary ---
Author Organization [facility] Address [address] [place] [address] Care Team Providers Care Network Relay Tester Name Role Phone Aidan Brush MD Primary Care Provider [phone] Source Comments [facility],non-owned Affiliates and Associated Physician Practices is amultiple site organization consisting of ambulatory clinics and hospital sitesin [place], [place], [place] and [place]. This disclosure is being madepursuant to the Care Everywhere program and may not contain all information available regarding this patient. Last updated 18.[facility] for; to (do) Centers Allergies Active Allergy Reactions Criticality Noted Date Comments Penicillins Rash Medium 11/11/2017 Medications * Be aware that medications may not be up to date on this document. Alwaysverify current medications with the patient. nebivolol (BYSTOLIC) 10 MG tablet Take 10 mg by mouth once daily Active clobetasol propionate (CLOBEX) 0.05 % spray by Apply externally route once daily Active metroNIDAZOLE, topical, (METROCREAM) 0.75 % cream Apply to affected area as needed Active doxycycline hyclate (DORYX MPC) 120 MG tablet Take 120 mg by mouth once daily Active Active Problems No known active problems Family History Medical History Relation Name Comments Cancer - Skin, Melanoma Neg Hx Cancer - Skin, Non Melanoma Neg Hx Social History Tobacco Use Types Packs/Day Years Used Date Smoking Tobacco: Former Smokeless Tobacco: Never Comments:Quit 2009 Alcohol Use Standard Drinks/Week Comments Yes 0 (1 standard drink = 0.6 oz pur e alcohol) varies Sex and Gender Information Value Date Recorded Sex Assigned at Not on file Legal Sex Male 6:12 PM TOMATO GRADER Gender Identity Not on file Sexual Orientation Not on file Last Filed Vital Signs Vital Sign Reading Time Taken Comments Blood Pressure - - Pulse - - Temperature - - Respiratory Rate - - Oxygen Saturation - - Inhaled Oxygen Concentration - - Weight 102.1 kg (225 lb) 11/11/2017 9:24 AM CDT Height 188 cm (6' 2 ) 11/11/2017 9:24 AM CDT Body Mass Index 28.89 11/11/2017 9:24 AM CDT Plan of Treatment Health Maintenance Due Date Last Done Comments COLOGUARD (AGES 45-75) - COL ON CA SCREENING 1960 COLON MONITORING 1960 COLONOSCOPY - COLON CA SCREENING 1960 CT COLONOGRAPHY - COLON CA SCREENING 1960 Colorectal Cancer Screening 1960 FIT - COLON CA SCREENING 1960 FLEX SIG - COLON CA SCREENING 1960 LIPID TESTING 1960 HIV SCREENING 01/01/1976 HEPATITIS C SCREENING 12/27/1978 DTAP/TDAP/TD VACCINES (1 - Tdap) 01/01/1980 PNEUMOCOCCAL VACCINE 50+ (1 of 1 - PCV) 2010 ZOSTER VACCINE (1 of 2) 2010 SCREENING FOR DIABETES 11/11/2017 COVID-19 VACCINE ( - 2023-2 5 season) 2024 DEPRESSION SCREENING 05/13/2024 INFLUENZA VACCINE (Season Ended) 2025 Respiratory Syncytial Virus (RSV) Vaccine Pt: or over 60 yrs (1 - 1-dose 75+ series) 01/01/2036 HEPATITIS B VACCINE Aged Out No longe r eligible based on patient's age to complete this topic HIB VACCINE Aged Out No longer eligi ble based on patient's age to complete this topic HPV VACCINE Aged Out No longer eligi ble based on patient's age to complete this topic MENINGOCOCCAL (Group B) VACC INE SHARED DECISION-MAKING Aged Out No longer eligibl e based on patient's age to complete this topic MENINGOCOCCAL GROUPS A/C/Y/W VACCINE Aged Out No longer eligible b ased on patient's age to complete this topic Insurance [facility] Care Teams Network Relay Tester Relationship Specialty Start Date End Date Aidan Brush MD [address] [place] [address] PCP - General 11/11/17
--- OUTSIDE RECORDS SUMMARY | 2024-09-08 09:13 | XMS_ITS | Referral Summary ---
Author Organization [facility] Address [address] [place] [address] Care Team Providers Care Rn Hospice Name Role Phone Mansoor Wright MD Primary Care Provider Joshua Miranda MD Unavailable [phone] Encounters Date Type Department Care Team Description 09/01/2024 Telephone [facility] Cardiology [address] [place] [address] [place] [phone] Derik Wise MD 08/21/2024 Telephone [facility] Cardiology [address] [place] [address] [place] [phone] Derik Wise MD 08/14/2024 Telephone [facility] Cardiology [address] [place] [address] [place] [phone] Valeria Campos NP 08/14/2024 8:30 AM CDT Office Visit [facility] Cardiology [address] [place] [address] [place] [phone] Valeria Campos NP Persistent atrial fibrillation (HCC) (Primary Dx); History of cardioversion; Primary hypertension; Coronary artery calcification 08/10/2024 Telephone [facility] Cardiology [address] [facility] [address] [address] Derik Wise MD Atrial Fibrillation 07/07/2024 8:00 AM TIMBER HAND Office Visit [facility] Cardiology [address] [place] [address] [place] [phone] Valeria Campos NP PAF (paroxysmal atrial fibrillation) (HCC) (Primary Dx); History of cardioversion; Encounter for anticoagulation discussion and counseling; Primary hypertension; Coronary artery calcification from Last 3 Months Allergies Active Allergy Reactions Criticality Noted Date [...] (11/07/2021): Added automatically from request for surgery [id number] Knee pain 08/05/2017 Arthralgia of shoulder 02/15/2010 Social History Tobacco Use Types Packs/Day Years Used Date Smoking Tobacco: Never Smokeless Tobacco: Never Tobacco Cessation:Counseling Given: Not Answered [facility] Utilities Answer Date Recorded In the past [...] often do you attend chur ch or baptist services? More than 4 times per year 04/29/2023 Do you belong to any clubs o r organizations such as mandaen groups, unions, fraternal or athletic groups, or [...] when you are drinking? 1 or 2 2 Q3: How often do you have [...] place to sleep or slept in a correction (including now)? No 04/29/2023 Personal Safety Answer Date Recorded Have you ever been in or are you currently in a harmful physical or emotional relationship or is someone making you feel afraid or unsafe? Denies 04/27/2023 Sex and Gender Information Value Date Recorded Sex Assigned at Not on file Legal Sex Male 2:42 AM TIMBER HAND Gender Identity Not on file Sexual Orientation Not on file Last Filed Vital Signs Vital Sign Reading Time Taken Comments Blood Pressure 114/70 08/14/2024 8:27 AM CDT Pulse 55 08/14/2024 8:27 AM CDT Temperature 36.5 C (97.7 F) 04/29/2023 11:58 AM TIMBER HAND Respiratory Rate 16 02/18/2024 2:46 PM CDT Oxygen Saturation 95% 08/14/2024 8:27 AM CDT Inhaled Oxygen Concentration - - Weight 98.4 kg (217 lb) 08/14/2024 8:27 AM CDT Height 188 cm (6' 2 ) 08/14/2024 8:27 AM CDT Body Mass Index 27.86 08/14/2024 8:27 AM CDT Plan of Treatment Not on file Medical Devices Implanted Type Area Hockey Instructor Device Identifier Shelf Expiration Date Model / Serial / Lot [employer] Inc 29mm Full Wedge Augment Shoulder 15d Baseplate Glenoid [id number] - [id number] - [id number] Implanted:Qty: 1 on 12/15/2021 by Roge Lassiter MD at [facility] Left: Shoulder Dive[employer] Inc 07/27/2026 [id number] / [id number] / [employer] Tornier Aequalis Perform Od42 Mm Reverse Shoulder Standard Sphere Glenoid [id number] - [id number] - [id number] Implanted:Qty: 1 on 12/15/2021 by Roge Lassiter MD at [facility] Left: Shoulder [employer] Inc 10/12/2026 [id number] / [id number] / [employer] Aequalis Perform Reversed 6.5mm 35mm Central Glenoid Screw Hlh733 - [id number] Implanted:Qty: 1 on 12/15/2021 by Roge Lassiter MD at [facility] Left: Shoulder [employer] [id number] / / [employer] Aequalis Perform Reversed Od5 Mm L46 Mm Peripheral Glenoid Screw Baseplate Nonsterile [id number] - [id number] Implanted:Qty: 1 on 12/15/2021 by Roge Lassiter MD at [facility] Left: Shoulder Cavazos [employer] Inc [id number] / / [employer] Aequalis Perform Reversed 5mm 30mm Peripheral Glenoid Screw [id number] - [id number] Implanted:Qty: 1 on 12/15/2021 by Roge Lassiter MD at [facility] Left: Shoulder [employer] [id number] / / [employer] Aequalis Perform Reversed 5mm 42mm Peripheral Glenoid Screw Grx461 - [id number] Implanted:Qty: 1 on 12/15/2021 by Roge Lassiter MD at [facility] Left: Shoulder [employer] [id number] / / [employer] Insert Perform 10 Deg [id number] [id number] - [id number] - [id number] Implanted:Qty: 1 on 12/15/2021 by Roge Lassiter MD at [facility] Left: Shoulder [employer] [id number] 01/04/2025 [id number] / [id number] / [employer] Stem Perform Sz 3 Plus Humeral Long Dwx3pl - [id number] - [id number] Implanted:Qty: 1 on 12/15/2021 by Roge Lassiter MD at [facility] Left: Shoulder [employer] 08/31/2026 [id number] / [id number] / Procedures Procedure Name Priority Date/Time Associated Diagnosis Comments ECG 12-LEAD Routine 08/14/2024 Persistent atrial fibrillation (HCC) from Last 3 Months Results * ECG 12 lead (08/14/2024) 08/14/2024 Valeria Campos BROWN SOURER ECG ORDERABLES Edited Re sult - Final from Last 3 Months Insurance [facility] ACCESS CHOICE Member Subscriber Plan / Payer (Ef fective 2021-Present) Name:Wesley Pichardo Relation to Subscriber:Self Name:Wesley Pichardo Payer ID:[id number] (NAIC) Type: ALLIANCE Address: [address] [place] [id number] [facility] CHOICE PLUS Advance Directives For more information, please contact: [phone] Documents on File Type Date Recorded Patient Geophysical Engineer Expl anation ADVANCE DIRECTIVE 12/15/2021 9:08 PM POA ADVANCE DIRECTIVE 12/15/2021 10:31 AM Power of Content Developer-Medical * Full Code (Latest Code Status on File) Date Activated Date Inactivated Comments 04/27/2023 12:43 PM 04/29/2023 7:41 PM * Full Code Date Activated Date Inactivated Comments 12/15/2021 6:24 PM 12/16/2021 1:27 PM Care Teams Rn Hospice Relationship Specialty Start Date End Date Mansoor Wright MD PCP - General Family Practice 09/22/21 Joshua Miranda MD [address] [place] [address] Consulting Physician Cardiology 04/29/23
--- OUTSIDE RECORDS SUMMARY | 2024-09-21 09:08 | XMS_ITS | Clinical Summary ---
Author Organization [facility] Address [address] [place] [address] Care Team Providers Care Clinical Lab Scientist Name Role Phone Aidan Brush MD Primary Care Provider [phone] Source Comments [facility],non-owned Affiliates and Associated Physician Practices is amultiple site organization consisting of ambulatory clinics and hospital sitesin [place], [place], [place] and [place]. This disclosure is being madepursuant to the Care Everywhere program and may not contain all information available regarding this patient. 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 Care Teams Clinical Lab Scientist Relationship Specialty Start Date End Date Aidan Brush MD [address] [place] [address] PCP - General 11/11/17
--- OUTSIDE RECORDS SUMMARY | 2024-09-21 09:08 | XMS_ITS | Clinical Summary ---
Author Organization [facility] Address [address] [place] [address] Care Team Providers Care Shipfitters Supervisor Name Role Phone Mansoor Wright MD Primary [...] (11/07/2021): Added automatically from request for surgery [id number] Knee pain 08/05/2017 Arthralgia of shoulder 02/15/2010 Encounters Date Type Department Care Team Description 09/15/2024 Orders Only [facility] Cardiology [address] [place] [address] [place] [phone] Rich Marie MD 09/01/2024 Telephone [facility] Cardiology [address] [place] [address] [place] [phone] Derik Wise MD 08/21/2024 Telephone [facility] Cardiology [address] [place] [address] [address] [place] [phone] Derik Wise MD 08/14/2024 8:30 AM CDT Office Visit [facility] Cardiology [address] [place] [address] [place] [phone] Valeria Campos NP Persistent atrial fibrillation (HCC) (Primary Dx); History of cardioversion; Primary hypertension; Coronary artery calcification 08/14/2024 Telephone [facility] Cardiology [address] [place] [phone] Valeria Campos NP 08/10/2024 Telephone [facility] Cardiology [address] [place] [phone] Derik Wise MD Atrial Fibrillation 07/07/2024 8:00 AM NEMATOLOGIST Office Visit [facility] Cardiology [address] [place] [phone] Valeria Campos NP PAF (paroxysmal atrial fibrillation) [...] Tobacco: Never Tobacco Cessation:Counseling Given: Not Answered [facility] Utilities Answer Date Recorded In the past 12 months has Pri[employer], gas, oil, or water [employer] threatened to shut off services in your [...] often do you attend chur ch or catholic services? More than 4 times per year 04/29/2023 Do you belong to any clubs o r organizations such as jehovah's witness groups, unions, fraternal or athletic groups, or [...] place to sleep or slept in a [place] [facility] [place] facility (including now)? No 04/29/2023 Personal Safety Answer [...] this topic Medical Devices Implanted Type Area Clinical Support Tech Device Identifier Shelf Expiration Date Model / Serial / Lot [employer] 29mm Full Wedge Augment Shoulder 15d Baseplate Glenoid [id number] - [id number] - [id number] Implanted:Qty: 1 on 12/15/2021 by Roge Lassiter MD at [facility] Left: Shoulder [employer] 07/27/2026 [id number] / [id number] / [employer] Tornier Aequalis Perform Od42 Mm Reverse Shoulder Standard Sphere Glenoid [id number] - [id number] - [id number] Implanted:Qty: 1 on 12/15/2021 by Roge Lassiter MD at [facility] Left: Shoulder [employer] 10/12/2026 [id number] / [id number] / [employer] Aequalis Perform Reversed 6.5mm 35mm Central Glenoid Screw [id number] - [id number] Implanted:Qty: 1 on 12/15/2021 by Roge Lassiter MD at [facility] Left: Shoulder [employer] [id number] / / [employer] Aequalis Perform Reversed Od5 Mm L46 Mm Peripheral Glenoid Screw Baseplate Nonsterile [id number] - [id number] Implanted:Qty: 1 on 12/15/2021 by Roge Lassiter MD at [facility] Left: Shoulder [employer] [id number] / / [employer] Aequalis Perform Reversed 5mm 30mm Peripheral Glenoid Screw [id number] - [id number] Implanted:Qty: 1 on 12/15/2021 by Roge Lassiter MD at [facility] Left: Shoulder [employer] [id number] / / [employer] Aequalis Perform Reversed 5mm 42mm Peripheral Glenoid Screw [id number] - [id number] Implanted:Qty: 1 on 12/15/2021 by Roge Lassiter MD at [facility] Left: Shoulder [employer] [id number] / / [employer] Insert Perform 10 Deg [id number] - [id number] - [id number] Implanted:Qty: 1 on 12/15/2021 by Roge Lassiter MD at [facility] Left: Shoulder [employer] [id number] 01/04/2025 [id number] / [id number] / [employer] Stem Perform Sz 3 Plus Humeral Long Dwx3pl - [id number] - [id number] Implanted:Qty: 1 on 12/15/2021 by Roge Lassiter MD at [facility] Left: Shoulder [employer] 08/31/2026 [id number] / [id number] / Procedures Procedure Name Priority Date/Time Associated Diagnosis Comments CARDIOLOGY DOCUMENT SCAN Routine 09/14/2024 12:45 PM CDT ECG 12-LEAD Routine 08/14/2024 Persistent atrial fibrillation (HCC) from Last 3 Months Results * Cardiology Document Scan (09/14/2024 12:45 PM CDT) Anatomical Region Laterality Modality Other Rich Marie MD CV CARDIAC SERVICES PRO CEDURES Final Result * ECG 12 lead (08/14/2024) 08/14/2024 Valeria Campos NP ECG ORDERABLES Edited Re sult - Final from Last 3 Months Insurance [facility] ACCESS CHOICE [facility] CHOICE PLUS Advance Directives For more information, please contact: [phone] Documents on File Type Date Recorded Patient Store Planner Expl anation ADVANCE DIRECTIVE 12/15/2021 9:08 PM POA ADVANCE DIRECTIVE 12/15/2021 10:31 AM Power of Swaging Machine Operator-Medical * Full Code (Latest Code Status on File) Date Activated Date Inactivated Comments 04/27/2023 12:43 PM 04/29/2023 7:41 PM * Full Code Date Activated Date Inactivated Comments 12/15/2021 6:24 PM 12/16/2021 1:27 PM Care Teams Shipfitters Supervisor Relationship Specialty Start Date End Date Mansoor Wright MD PCP - General Family Practice 09/22/21 Joshua Miranda MD [address] [place] [address] Consulting Physician Cardiology 04/29/23
--- OUTSIDE RECORDS SUMMARY | 2024-09-21 09:08 | XMS_ITS | Referral Summary ---
Author Organization [facility] Address [address] [place] [address] Care Team Providers Care Ground Nuclear Weapons Assembly Officer Name Role Phone Mansoor Wright MD Primary Care Provider Joshua Miranda MD Unavailable [phone] Encounters Date Type Department Care Team Description 09/15/2024 Orders Only [facility] Cardiology [address] [place] [address] [place] [phone] Rich Marie MD 09/01/2024 Telephone [facility] Cardiology [address] [place] [address] [place] [phone] Derik Wise MD 08/21/2024 Telephone [facility] Cardiology [address] [place] [address] [place] [phone] Derik Wise MD 08/14/2024 Telephone [facility] Cardiology [address] [place] [address] [place] [phone] Valeria Campos NP 08/14/2024 8:30 AM CDT Office Visit [facility] Cardiology [address] [place] [address] [address] [place] [phone] Valeria Campos NP Persistent atrial fibrillation (HCC) (Primary Dx); History of cardioversion; Primary hypertension; Coronary artery calcification 08/10/2024 Telephone [facility] Cardiology [address] [place] [phone] Derik Wise MD Atrial Fibrillation 07/07/2024 8:00 AM CORN GROWER Office Visit [facility] Cardiology [address] [place] [phone] Valeria Campos NP PAF (paroxysmal [...] (11/07/2021): Added automatically from request for surgery [id number] Knee pain 08/05/2017 Arthralgia of shoulder 02/15/2010 Social History Tobacco Use Types Packs/Day Years Used Date Smoking Tobacco: Never Smokeless Tobacco: Never Tobacco Cessation:Counseling Given: Not Answered [facility] Utilities Answer Date Recorded In the past 12 months has [employer] electric, gas, oil, or water company threatened [...] 04/29/2023 How often do you attend chur or buddhist services? More than 4 times per year 04/29/2023 Do you belong to any clubs o r organizations such as quaker groups, unions, fraternal or athletic groups, or [...] place to sleep or slept in a senior living (including now)? No 04/29/2023 Personal Safety Answer Date Recorded Have you ever been in or are you currently in a harmful physical or emotional relationship or is someone making you feel afraid or unsafe? Denies 04/27/2023 Sex and Gender Information Value Date Recorded Sex Assigned at Not on file Legal Sex Male 2:42 AM CORN GROWER Gender Identity Not on file Sexual Orientation Not on file Last Filed Vital Signs Vital Sign Reading Time Taken Comments Blood Pressure 114/70 08/14/2024 8:27 AM CDT Pulse 55 08/14/2024 8:27 AM CDT Temperature 36.5 C (97.7 F) 04/29/2023 11:58 AM CORN GROWER Respiratory Rate 16 02/18/2024 2:46 PM CDT Oxygen Saturation 95% 08/14/2024 8:27 AM CDT Inhaled Oxygen Concentration - - Weight 98.4 kg (217 lb) 08/14/2024 8:27 AM CDT Height 188 cm (6' 2 ) 08/14/2024 8:27 AM CDT Body Mass Index 27.86 08/14/2024 8:27 AM CDT Plan of Treatment Not on file Medical Devices Implanted Type Area Preparation Department Supervisor Device Identifier Shelf Expiration Date Model / Serial / Lot [employer] 29mm Full Wedge Augment Shoulder 15d Baseplate Glenoid [id number] - [id number] - [id number] Implanted:Qty: 1 on 12/15/2021 by Roge Lassiter MD at [facility] Left: Shoulder [employer] 07/27/2026 [id number] / [id number] / [employer] Tornier Aequalis Perform Od42 Mm Reverse Shoulder Standard Sphere Glenoid Owq781 - [id number] - [id number] Implanted:Qty: 1 on 12/15/2021 by Roge Lassiter MD at [facility] Left: Shoulder [employer] 10/12/2026 [id number] / [id number] / [employer] Aequalis Perform Reversed 6.5mm 35mm Central Glenoid Screw [id number] - [id number] Implanted:Qty: 1 on 12/15/2021 by Roge Lassiter MD at [facility] Left: Shoulder [employer] [id number] / / [employer] Aequalis Perform Reversed Od5 Mm L46 Mm Peripheral Glenoid Screw Baseplate Nonsterile [id number] - [id number] Implanted:Qty: 1 on 12/15/2021 by Roge Lassiter MD at [facility] Left: Shoulder [employer] [id number] / / [employer] Aequalis Perform Reversed 5mm 30mm Peripheral Glenoid Screw [id number] - [id number] Implanted:Qty: 1 on 12/15/2021 by Roge Lassiter MD at [facility] Left: Shoulder [employer] [id number] / / [employer] Aequalis Perform Reversed 5mm 42mm Peripheral Glenoid Screw [id number] - [id number] Implanted:Qty: 1 on 12/15/2021 by Roge Lassiter MD at [facility] Left: Shoulder [employer] [id number] / / [employer] Insert Perform 10 Deg [id number] - [id number] - [id number] Implanted:Qty: 1 on 12/15/2021 by Roge Lassiter MD at [facility] Left: Shoulder [employer] [id number] 01/04/2025 [id number] / [id number] / [employer] Stem Perform Sz 3 Plus Humeral Long Dwx3pl - [id number] - [id number] Implanted:Qty: 1 on 12/15/2021 by Roge Lassiter MD at [facility] Left: Shoulder [employer] 08/31/2026 [id number] / [id number] / Procedures Procedure Name Priority Date/Time Associated Diagnosis Comments CARDIOLOGY DOCUMENT SCAN Routine 09/14/2024 12:45 PM CDT ECG 12-LEAD Routine 08/14/2024 Persistent atrial fibrillation (HCC) from Last 3 Months Results * Cardiology Document Scan (09/14/2024 12:45 PM CDT) Anatomical Region Laterality Modality Other us Rich Marie MD CV CARDIAC SERVICES PRO CEDURES Final Result * ECG 12 lead (08/14/2024) 08/14/2024 us Valeria Campos NP ECG ORDERABLES Edited Re sult - Final from Last 3 Months Insurance [facility] ACCESS CHOICE [facility] CHOICE PLUS Advance Directives For more information, please contact: [phone] Documents on File Type Date Recorded Patient Wound Treatment Rn Expl anation ADVANCE DIRECTIVE 12/15/2021 9:08 PM POA ADVANCE DIRECTIVE 12/15/2021 10:31 AM Power of Line Installer-Medical * Full Code (Latest Code Status on File) Date Activated Date Inactivated Comments 04/27/2023 12:43 PM 04/29/2023 7:41 PM * Full Code Date Activated Date Inactivated Comments 12/15/2021 6:24 PM 12/16/2021 1:27 PM Care Teams Ground Nuclear Weapons Assembly Officer Relationship Specialty Start Date End Date Mansoor Wright MD PCP - General Family Practice 09/22/21 Joshua Miranda MD [address] [place] [address] Consulting Physician Cardiology 04/29/23
--- OUTSIDE RECORDS SUMMARY | 2024-09-21 09:08 | XMS_ITS | Clinical Summary ---
Author Organization [facility] Address [address] [place] [address] Care Team Providers Care Power Saw Operator Name Role Phone Unavailable Primary Care Provider Unavailabl e Immunizations Immunization Administration Dates Next Due MODERNA COVID-19 (12+) MRNA, LNP-S, PF, 100 MCG/ 0.5 ML DOSE 07/01/2020,06/03/2020 Social History Tobacco Use Types Packs/Day Years Used Date Smoking Tobacco: Never Assessed Sex and Gender Information Value Date Recorded Sex Assigned at Not on file Legal Sex Male 2:10 PM OUTSIDE SALES ACCOUNT REPRESENTATIVE Gender Identity Not on file Sexual Orientation [...]
== END 2024-09-21 09:12 | disposition home or self-care (01) ==
PROVIDERS: PCP Family Medicine; Visit Provider Nurse Practitioner Adult Health
DX: G47.9 Sleep disorder, unspecified (principal); I48.19 Other persistent atrial fibrillation
CPT/HCPCS: 95800

== ENCOUNTER 2024-09-14 01:05 | Day surgery (SDC) | payer OTHER, SELFPAY ==
[2024-09-11 14:15] VITALS: BMI 26.4
[2024-09-14] VITALS (7 sets, daily range): BP systolic 93–130; BP diastolic 66–78; PULSE 53–65; RESP 13–18; TEMP 36.6; O2SAT 98–99; BMI 27.3
--- OUTSIDE RECORDS SUMMARY | 2024-09-14 01:09 | XMS_ITS | Clinical Summary ---
Author Organization [facility] Address [address] [place] [address] Care Team Providers Care Flying Teacher Name Role Phone Mansoor Wright MD Primary Care Provider Joshua Miranda MD Unavailable Allergies Active Allergy Reactions Criticality Noted Date Comments Penicillins Rash Medium 02/15/2010 Medications amLODIPine-benaz epriL (LOTREL) 5-40 mg per capsuleIndicatio ns:hypertension Take 1 capsule by mouth every morning 2 Active clobetasoL 0.05 % external sprayIndications :Plaque [...] (two) times a day 180 tablet 3 5 Active metoprolol XL (TOPROL-XL) 25 mg extended release tabletIndication s:Persistent atrial fibrillation (HCC) Take 1 tablet (25 mg total) by mouth daily 90 tablet 3 5 08/15/19 26 Active apixaban (ELIQUIS) 5 mg tabletIndication s:Persistent atrial fibrillation (HCC) Take 1 tablet (5 mg total) by mouth 2 (two) times a day 180 tablet 3 5 Active Active Problems Problem Noted Date Diagnosed Date [...] (11/07/2021): Added automatically from request for surgery [id number] Knee pain 08/05/2017 Arthralgia of shoulder 02/15/2010 Encounters Date Type Department Care Team Description 09/01/2024 Telephone [facility] Cardiology [address] [place] [address] [place] [phone] Derik Wise MD 08/21/2024 Telephone [facility] Cardiology [address] [place] [address] [place] [phone] Derik Wise MD 08/14/2024 8:30 AM CDT Office Visit [facility] Cardiology [address] [place] [address] [place] [phone] Valeria Campos NP Persistent atrial fibrillation (HCC) (Primary Dx); History of cardioversion; Primary hypertension; Coronary artery calcification 08/14/2024 Telephone [facility] Cardiology [address] [place] [address] [place] [phone] Valeria Campos NP 08/10/2024 Telephone [facility] Cardiology [address] [facility] [address] [phone] Derik Wise MD Atrial Fibrillation 07/07/2024 8:00 AM NEMATOLOGIST Office Visit [facility] Cardiology [address] [place] [phone] Valeria Campos NP PAF (paroxysmal atrial [...] Tobacco: Never Tobacco Cessation:Counseling Given: Not Answered [facility] Utilities Answer Date Recorded In the past 12 months has e electric, gas, oil, or water mth sense threatened to shut off services in your [...] often do you attend chur ch or sabianism services? More than 4 times per year 04/29/2023 Do you belong to any clubs o r organizations such as druze groups, unions, fraternal or athletic groups, or [...] place to sleep or slept in a half-way (including now)? No 04/29/2023 Personal Safety Answer Date Recorded Have you ever been in or are you currently in a harmful physical or emotional relationship or is someone making you feel afraid or unsafe? Denies 04/27/2023 Sex and Gender Information Value Date Recorded Sex Assigned at Not on file Legal Sex Male 2:42 AM NEMATOLOGIST Gender Identity Not on file Sexual Orientation Not on file Obstetrics History Last Filed Vital Signs Vital Sign Reading Time Taken Comments Blood Pressure 114/70 08/14/2024 8:27 AM CDT Pulse 55 08/14/2024 8:27 AM CDT Temperature 36.5 C (97.7 F) 04/29/2023 11:58 AM NEMATOLOGIST Respiratory Rate 16 02/18/2024 2:46 PM CDT [...] this topic Medical Devices Implanted Type Area Zinc Plate Cutter Device Identifier Shelf Expiration Date Model / Serial / Lot Skritter 29mm Full Wedge Augment Shoulder 15d Baseplate Glenoid Fsb196 - [id number] - [id number] Implanted:Qty: 1 on 12/15/2021 by Roge Lassiter MD at [facility] Left: Shoulder [employer] Inc 07/27/2026 [id number] / [id number] / [employer] Inc Tornier Aequalis Perform Od42 Mm Reverse Shoulder Standard Sphere Glenoid Lbv471 - [id number] - [id number] Implanted:Qty: 1 on 12/15/2021 by Roge Lassiter MD at [facility] Left: Shoulder [employer]uristic [employer] Inc 10/12/2026 JTM059 / [id number] / [employer] Inc Aequalis Perform Reversed 6.5mm 35mm Central Glenoid Screw Ysy485 - [id number] Implanted:Qty: 1 on 12/15/2021 by Roge Lassiter MD at [facility] Left: Shoulder [employer] AWH748 / / [employer] Inc Aequalis Perform Reversed Od5 Mm L46 Mm Peripheral Glenoid Screw Baseplate Nonsterile Wnj265 - [id number] Implanted:Qty: 1 on 12/15/2021 by Roge Lassiter MD at [facility] Left: Shoulder [employer] RFC386 / / [employer] Inc Aequalis Perform Reversed 5mm 30mm Peripheral Glenoid Screw Zvk299 - [id number] Implanted:Qty: 1 on 12/15/2021 by Roge Lassiter MD at [facility] Left: Shoulder L[employer] Inc TIL226 / / [employer] Inc Aequalis Perform Reversed 5mm 42mm Peripheral Glenoid Screw Dcv896 - [id number] Implanted:Qty: 1 on 12/15/2021 by Roge Lassiter MD at [facility] Left: Shoulder [employer] Inc RHZ159 / / [employer] Inc Insert Perform 10 Deg Dcj2148 Fex5034 - [id number] - [id number] Implanted:Qty: 1 on 12/15/2021 by Roge Lassiter MD at [facility] Left: Shoulder [employer] Inc [id number] 01/04/2025 [id number] / [id number] / [employer] Inc Stem Perform Sz 3 Plus Humeral Long Dwx3pl - [id number] - [id number] Implanted:Qty: 1 on 12/15/2021 by Roge Lassiter MD at [facility] Left: Shoulder [employer] Inc 08/31/2026 DWX3PL / [id number] / Procedures Procedure Name Priority Date/Time Associated Diagnosis Comments ECG 12-LEAD Routine 08/14/2024 Persistent atrial fibrillation (HCC) from Last 3 Months Results * ECG 12 lead (08/14/2024) 08/14/2024 Valeria Campos NP ECG ORDERABLES Edited Re sult - Final from Last 3 Months Insurance [facility] Advance Directives For more information, please contact: [phone] Documents on File Type Date Recorded Patient Water Resource Engineer Expl anation ADVANCE DIRECTIVE 12/15/2021 9:08 PM POA ADVANCE DIRECTIVE 12/15/2021 10:31 AM Power of Health Insurance Assessor-Medical * Full Code (Latest Code Status on File) Date Activated Date Inactivated Comments 04/27/2023 12:43 PM 04/29/2023 7:41 PM * Full Code Date Activated Date Inactivated Comments 12/15/2021 6:24 PM 12/16/2021 1:27 PM Care Teams Flying Teacher Relationship Specialty Start Date End Date Mansoor Wright MD PCP - General Family Practice 09/22/21 Joshua Miranda MD [address] [place] [address] Consulting Physician Cardiology 04/29/23
--- OUTSIDE RECORDS SUMMARY | 2024-09-14 01:09 | XMS_ITS | Clinical Summary ---
Author Organization [facility] [employer] Address [address] [facility] [place] [address] Care Team Providers Care Bee Keeper Name Role Phone Aidan Brush MD Primary Care Provider [phone] Source Comments [facility],non-owned Affiliates and Associated Physician Practices is amultiple site organization consisting of ambulatory clinics and hospital sitesin [place], [place], [place] and [place]. This disclosure is being madepursuant to the Care Everywhere program and may not contain all information available regarding this patient. 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
--- OUTSIDE RECORDS SUMMARY | 2024-09-14 01:09 | XMS_ITS | Referral Summary ---
Author Organization [facility] Address [address] [place] [address] Care Team Providers Care Leisure Travel Agent Name Role Phone Mansoor Wright MD Primary Care Provider Joshua Miranda MD Unavailable [phone] Encounters Date Type Department Care Team Description 09/01/2024 Telephone [facility] Cardiology [address] [place] [address] [place] [phone] Derik Wise MD 08/21/2024 Telephone [facility] Cardiology [address] [place] [address] [place] [phone] Derik Wise MD 08/14/2024 Telephone [facility] Cardiology [address] [place] [address] [place] [address] [phone] Valeria Campos NP 08/14/2024 8:30 AM CDT Office Visit [facility] Cardiology [address] [place] [address] [place] [phone] Valeria Campos NP Persistent atrial fibrillation (HCC) (Primary Dx); History of cardioversion; Primary hypertension; Coronary artery calcification 08/10/2024 Telephone [facility] Cardiology [address] [facility] [address], [place] [address] Derik Wise MD Atrial Fibrillation 07/07/2024 8:00 AM BIOPSYCHOLOGIST Office Visit [facility] Cardiology [address] [place] [address] [place] [phone] Valeria Campos NP PAF (paroxysmal atrial fibrillation) [...] (11/07/2021): Added automatically from request for surgery [id number] Knee pain 08/05/2017 Arthralgia of shoulder 02/15/2010 Social History Tobacco Use Types Packs/Day Years Used Date Smoking Tobacco: Never Smokeless Tobacco: Never Tobacco Cessation:Counseling Given: Not Answered [facility] Utilities Answer Date Recorded In the past 12 months has [employer] electric, gas, oil, or water company threatened [...] often do you attend chur ch or adventism services? More than 4 times per year 04/29/2023 Do you belong to any clubs o r organizations such as gnosticism groups, unions, fraternal or athletic groups, or [...] place to sleep or slept in a fci (including now)? No 04/29/2023 Personal Safety Answer Date Recorded Have you ever been in or are you currently in a harmful physical or emotional relationship or is someone making you feel afraid or unsafe? Denies 04/27/2023 Sex and Gender Information Value Date Recorded Sex Assigned at Not on file Legal Sex Male 2:42 AM BIOPSYCHOLOGIST Gender Identity Not on file Sexual Orientation Not on file Last Filed Vital Signs Vital Sign Reading Time Taken Comments Blood Pressure 114/70 08/14/2024 8:27 AM CDT Pulse 55 08/14/2024 8:27 AM CDT Temperature 36.5 C (97.7 F) 04/29/2023 11:58 AM BIOPSYCHOLOGIST Respiratory Rate 16 02/18/2024 2:46 PM CDT Oxygen Saturation 95% 08/14/2024 8:27 AM CDT Inhaled Oxygen Concentration - - Weight 98.4 kg (217 lb) 08/14/2024 8:27 AM CDT Height 188 cm (6' 2 ) 08/14/2024 8:27 AM CDT Body Mass Index 27.86 08/14/2024 8:27 AM CDT Plan of Treatment Not on file Medical Devices Implanted Type Area Quiller Tender Device Identifier Shelf Expiration Date Model / Serial / Lot Im[employer]in. [employer] 29mm Full Wedge Augment Shoulder 15d Baseplate Glenoid [id number] - [id number] - [id number] Implanted:Qty: 1 on 12/15/2021 by Roge Lassiter MD at [facility] Left: Shoulder [employer] 07/27/2026 [id number] / [id number] / Imagiin. [employer] Inc Tornier Aequalis Perform Od42 Mm Reverse Shoulder Standard Sphere Glenoid [id number] - [id number] - [id number] Implanted:Qty: 1 on 12/15/2021 by Roge Lassiter MD at [facility] Left: Shoulder [employer] 10/12/2026 IRY673 / [id number] / Imagiin. [employer] Inc Aequalis Perform Reversed 6.5mm 35mm Central Glenoid Screw Mgx549 - [id number] Implanted:Qty: 1 on 12/15/2021 by Roge Lassiter MD at [facility] Left: Shoulder Imagi[employer]. [employer] Inc GYP480 / / Imagi[employer]. [employer] Inc Aequalis Perform Reversed Od5 Mm L46 Mm Peripheral Glenoid Screw Baseplate Nonsterile Fpc425 - [id number] Implanted:Qty: 1 on 12/15/2021 by Roeg Lassiter MD at [facility] Left: Shoulder [employer] PEV687 / / Imagi[employer]. [employer] Inc Aequalis Perform Reversed 5mm 30mm Peripheral Glenoid Screw Flf451 - [id number] Implanted:Qty: 1 on 12/15/2021 by Roge Lassiter MD at [facility] Left: Shoulder Imagi[employer]. [employer] WEB305 / / Imagi[employer]. [employer] Inc Aequalis Perform Reversed 5mm 42mm Peripheral Glenoid Screw [id number] - [id number] Implanted:Qty: 1 on 12/15/2021 by Roge Lassiter MD at [facility] Left: Shoulder [employer] DPH854 / / Im[employer] Insert Perform 10 Deg Cob9923 [id number] - [id number] - [id number] Implanted:Qty: 1 on 12/15/2021 by Roge Lassiter MD at [facility] Left: Shoulder [employer] [id number] 01/04/2025 [id number] / [id number] / [employer] Stem Perform Sz 3 Plus Humeral Long Dwx3pl - [id number] - [id number] Implanted:Qty: 1 on 12/15/2021 by Roge Lassiter MD at [facility] Left: Shoulder [employer] Inc 08/31/2026 DWX3PL / [id number] / Procedures Procedure Name Priority Date/Time Associated Diagnosis Comments ECG 12-LEAD Routine 08/14/2024 Persistent atrial fibrillation (HCC) from Last 3 Months Results * ECG 12 lead (08/14/2024) 08/14/2024 Valeria Campos NP ECG ORDERABLES Edited Re sult - Final from Last 3 Months Insurance [facility] CHOICE [facility] PL[facility] Advance Directives For more information, please contact: [phone] Documents on File Type Date Recorded Patient Transition Teacher Expl anation ADVANCE DIRECTIVE 12/15/2021 9:08 PM POA ADVANCE DIRECTIVE 12/15/2021 10:31 AM Power of Radio News Anchor-Medical * Full Code (Latest Code Status on File) Date Activated Date Inactivated Comments 04/27/2023 12:43 PM 04/29/2023 7:41 PM * Full Code Date Activated Date Inactivated Comments 12/15/2021 6:24 PM 12/16/2021 1:27 PM Care Teams Leisure Travel Agent Relationship Specialty Start Date End Date Mansoor Wright MD PCP - General Family Practice 09/22/21 Joshua Miranda MD [address] [place] [address] Consulting Physician Cardiology 04/29/23
--- OUTSIDE RECORDS SUMMARY | 2024-09-14 01:09 | XMS_ITS | Clinical Summary ---
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
--- NOTE | 2024-09-14 07:30 | ECG_ITS ---
Test Date: 2024-09-14 08:03:19 Measurements Intervals [place] Rate: 59 P: 0 [place]: 0 QRS: 19 QRSD: 88 T: 30 QT: 403 QTc: 400 Interpretive Statements ATRIAL FIBRILLATION WITH SLOW VENTRICULAR RESPONSE ABNORMAL RHYTHM ECG Compared to ECG 03/25/2024 08:51:55 ATRIAL FIBRILLATION REPLACES SINUS RHYTHM Electronically Signed On 09-14-2024 15:35:43 CDT by Luther Harrington M.D.
[2024-09-14 08:26] LABS: Basophils Absolute Auto 0.1 K/mm3 (0.0-0.1); Basophils Percent Auto 1.3 % (0.2-1.2); Eosinophils Absolute Auto 0.1 K/mm3 (0-0.3); Eosinophils Percent Auto 2.2 % (0-4.4); Hematocrit 45.5 % (42.0-52.0); Hemoglobin 15.7 g/dL (14.0-18.0); Immature Granulocyte Absolute 0.02 K/mm3 (0.00-0.031); Immature Granulocyte Percent A 0.4 % (0-0.5); Lymphocytes Absolute Auto 1.02 K/mm3 (0.9-3.2); Lymphocytes Percent Auto 18.4 % (18.3-44.2); Mean Corpuscular HGB Conc 34.5 g/dl (32-36); Mean Corpuscular Hemoglobin 34.1 pg (26-34); Mean Corpuscular Volume 98.7 fl (80-100); Mean Platelet Volume 8.7 fl (7.4-10.4); Monocytes Absolute Auto 0.7 K/mm3 (0.1-0.6); Monocytes Percent Auto 12.8 % (2.6-8.5); Neutrophils Absolute Auto 3.6 K/mm3 (1.3-6.7); Neutrophils Percent Auto 64.9 % (45.5-73.1); Platelet Count Result 302 k/mm3 (150-375); Red Blood Count 4.61 M/mm3 (4.6-6.20); Red Cell Distribution Width 11.5 % (11.5-14.5); White Blood Count 5.5 K/mm3 (4.5-10.0)
[2024-09-14 08:37] LABS: Anion Gap 7 mmol/L (4-12); Blood Urea Nitrogen 10 mg/dL (9-20); Calcium 9.3 mg/dL (8.4-10.2); Carbon Dioxide 27 mmol/L (22-30); Chloride 102 mmol/L (98-107); Estimated CRCL calculation 121 ml/min; Estimated Glomerular Filt Rate > 60; Glucose 107 mg/dL (65-110); Potassium 4.1 mmol/L (3.4-5.0); Sodium 136 mmol/L (137-145)
[2024-09-14] MEDS: PROPOFOL IV EMULSION 200 MG/20 ML VIAL 40 MG IV PUSH ×2 (08:52→08:54)
--- NOTE | 2024-09-14 09:00 | ECG_ITS ---
Test Date: 2024-09-14 08:58:23 Measurements Intervals [place] Rate: 55 P: 18 FL: 225 QRS: 13 QRSD: 85 T: 29 QT: 430 QTc: 413 Interpretive Statements SINUS BRADYCARDIA WITH FIRST DEGREE AV BLOCK BORDERLINE ECG Compared to ECG 09/14/2024 08:03:19 SINUS RHYTHM REPLACES ATRIAL FIBRILLATION Electronically Signed On 09-14-2024 15:38:59 CDT by Luther Harrington M.D.
--- NOTE | 2024-09-14 09:01 | WPDHPUPDATE1 ---
History and Physical Update Update Date/Time: 09/14/24 09:01 History and Physical has been reviewed, including an updated exam of the patient. There are NO changes in the patient's condition. Risks, benefits, and alternatives have been discussed and questions answered. Patient agrees to proceed with procedure.
--- NOTE | 2024-09-14 09:02 | P.SEDATION_ITS ---
Moderate Sedation Note-Pt Data Patient Data Diagnosis: Atrial fibrillation Present Complaint: Atrial fibrillation Procedure to be performed/Plan: Synchronized electrical cardioversion Allergies Allergy/AdvReac Type Severity Reaction Status Date / Time Penicillins Allergy Mild Hives Verified 09/14/24 07:58 Home Medications ?Medication ?Instructions ?Recorded ?Confirmed ?Type clobetasol 0.05 % topical spray 1 spray topical DAILY PRN Skin 08/26/20 09/11/24 History Irritation sildenafil 25 mg tablet 25 mg PO DAILY PRN Sexual Activity 12/22/20 09/11/24 History apixaban 5 mg tablet (Eliquis) 5 mg PO BID 03/24/24 09/14/24 History collagen (bovine) 1 dose pk PO DAILY 03/24/24 09/14/24 History metoprolol succinate 50 mg 75 mg PO DAILY 03/24/24 09/14/24 History tablet,extended release 24 hr metronidazole 0.75 % topical cream 1 applic topical DAILY PRN Skin 03/24/24 09/11/24 History Irritation amlodipine 5 mg-benazepril 40 mg 1 cap PO DAILY #90 caps 07/02/24 09/14/24 Rx capsule dronedarone 400 mg tablet (Multaq) mg 09/11/24 History Sedation/Anesthesia: No previous sedation/anesthesia problems (including family history). [facility]LY [facility] Past Medical History Medical History Episode of gagging Broken clavicle 04/2023 Rib fracture 04/2023 Afib Left rotator cuff tear (~12/2021) Male erectile dysfunction, unspecified Essential (primary) hypertension Hyperlipidemia, unspecified Surgical History Surgical History H/O shoulder replacement Family History Family History Mother Family history of osteoporosis Family history of arthritis Family history of emphysema Other Acute myocardial infarction Social History Social History Social History: caffeine-coffee Smoking packs per day: 0 Smoking cigarettes per day: 0.0 Years smoked: 0 Smoking pack-years: 0.00 Smoking status: Never smoker Tobacco type: cigarettes Second hand tobacco smoke exposure: No Alcohol intake: former Drinks per week: 10 Alcohol use details: 1-2 drinks a day. wine Substance use: never Substance use type: does not use Last use: 2009 Do You Feel Safe in your Home?: Yes Lack of Transportation: No Lack of Food: Never True Current Housing: I Have Housing Concerned About Future Housing: Decline to Answer Difficulty Paying Gas/Electric Bills: Decline to Answer Difficulty Paying for Meds: Decline to Answer Currently Unemployed: Decline to Answer Education: Decline to Answer Difficulty w/ Childcare or Family Care: Decline to Answer Living arrangements: with family Occupation/Education: occupation Gender identity (if verbalized by the patient): Male Sexual Orientation (if Verbalized by the Patient): Straight or Heterosexual Spiritual care concerns: No Agree to blood products: Yes Mod Sed Physical Exam Physical Exam Pre Procedural Exam: Normal: Appearance, Lungs, Neuro Exam, Extremities and Skin and Variation: Heart Rate (Rate controlled AFIB) and Heart Rhythm (Rate controlled AFIB) Hours since solid foods: 12 Hours since liquid intake: 8 Mallampati Classification: class III Internal Medicine - PN: Obj Da Vital Signs Vital Signs: Vital Signs - 24 hr 09/14/24 08:00 09/14/24 08:52 09/14/24 08:55 Temperature 36.6 C Pulse Rate 65 53 L 65 Respiratory Rate 15 13 14 Blood Pressure 114/78 130/76 130/76 Pulse Oximetry 99 99 99 Oxygen Delivery Room Air Room Air Room Air Labs 09/14/24 08:16 09/14/24 08:16 Labs: Laboratory Results - last 24 hr 09/14/24 08:16 WBC 5.5 RBC 4.61 Hgb 15.7 Hct 45.5 MCV 98.7 MCH 34.1 H MCHC 34.5 RDW 11.5 Plt Count 302 MPV 8.7 Immature Gran % (Auto) 0.4 Neut % (Auto) 64.9 Lymph % (Auto) 18.4 [place] % (Auto) 12.8 H Eos % (Auto) 2.2 Baso % (Auto) 1.3 H Lymph # (Auto) 1.02 [place] # (Auto) 0.7 H Eos # (Auto) 0.1 Baso # (Auto) 0.1 Abs Immat Gran (auto) 0.02 Absolute Neuts (auto) 3.6 Absolute Nucleated RBC 0.000 Nucleated RBC % 0.0 Sodium 136 L Potassium 4.1 Chloride 102 Carbon Dioxide 27 Anion Gap 7 BUN 10 Creatinine 0.62 L Estim Creat Clear Calc 121 Estimated GFR > 60 Glucose 107 Calcium 9.3 ASA Classification/Sedation ASA Classification/Sedation ASA Class: II Emergent: No Risks: Risks, benefits and alternatives explained and patient/family accepted plan for sedation. Patient re-evaluated immediately prior to sedation.
--- NOTE | 2024-09-14 09:03 | P.PCNCVR_ITS ---
Cardioversion Cardioversion Date of procedure: 09/14/24 Procedure: Synchronized electrical cardioversion Pre-op diagnosis: Atrial fibrillation Post-op diagnosis: Other (Successful cardioversion to sinus rhythm. ) Indications: Atrial fibrillation Description of procedure: Written informed consent obtained. Defibrillator pads placed in an anterior- posterior position. Time out performed by NAYELI Foley. Total of Propofol 80mg IV was administered by me. Once patient was adequately sedated, synchronized electrical cardioversion was performed with 1 shock at 200 joules, which successfully restored sinus rhythm. Patient's hemodynamics and respiratory status was monitored throughout the procedure. No periprocedural complications. Procedure start time: 08:52 Procedure end time: 08:57 Sedation: Total of Propofol 80mg IV was administered by me. Findings: Successful synchronized electrical cardioversion to sinus rhythm with 1 shock at 200 joules. Conclusion: Successful synchronized electrical cardioversion to sinus rhythm with 1 shock at 200 joules.
== END 2024-09-14 10:11 | disposition home or self-care (01) ==
PROVIDERS: PCP Family Medicine; Visit Provider Internal Medicine
PROC: 5A2204Z Restoration of Cardiac Rhythm, Single (ICD-10-PCS; principal; 2024-09-14 09:00)
DX: I48.91 Unspecified atrial fibrillation (principal)
CPT/HCPCS: 36415; 80048; 85025; 92960; J2704; J7040